=== PATIENT | female | born 1950 | race Caucasian/White ===

== ENCOUNTER 2019-03-01 16:55 | Inpatient (IN) | payer MEDICARE, MEDICAID, OTHER ==
--- NOTE | 2019-03-01 18:20 | NUR ---
ELIGIO VILLAVICENCIO a 69 year old F admitted via wheel chair from the ADMITTING as a voluntary BY [facility] admission. Arrived on unit at 1820. ALLERGIES: DEMEROL. Vital signs are: 98.2-88-17 120/82. 99% ROOM AIR CONSENTS FOR ADMISSION OBTAINED VIA TELEPHONE FROM PT'S [facility] ANIVAL VILLAVICENCIO AND MATHEW VILLAVICENCIO. WITNESSED BY 2 RNS: Authorization For The Release of Medical Information, Consent to Voluntary Admission and Hospitalization, Consent and Release Forms/Receipt of Rights, Acknowledgement of Advance Directive Information, Behavioral Health Consent Form, and Informed Consent of Medications. Admitted under the services of Dr. LISSETTE BOBO,[facility]. A search was conducted and hazardous articles were removed. Client was oriented to the unit. GUADALUPE BRUNO
[2019-03-01 18:30] VITALS: BP 120/82
[2019-03-01] MEDS ORDERED: TYLENOL325 M1 PO (18:35)
[2019-03-01] MEDS ORDERED: ANBESOL9 G1 PO (18:36)
[2019-03-01] MEDS ORDERED: DULCOLAX10 M1 R (18:37)
[2019-03-01] MEDS ORDERED: CHOLESTYRAMINE P4 GM PO (18:38)
[2019-03-01] MEDS ORDERED: VITAMIN B121000 MC1 PO (18:39)
[2019-03-01] MEDS ORDERED: FLEET MINERAL133 ML R (18:40)
[2019-03-01] MEDS ORDERED: FEROSUL325 MG PO (18:40)
[2019-03-01] MEDS ORDERED: PHARMASSURE FO0.4 MG PO (18:40)
[2019-03-01] MEDS ORDERED: KEPPRA500 MG PO (18:41)
[2019-03-01] MEDS ORDERED: MILK OF MA400 MG/51 PO (18:42)
[2019-03-01] MEDS ORDERED: LISINOPRIL5 MG PO (18:42)
[2019-03-01] MEDS ORDERED: MYLANTA MAXIMU355 M1 PO (18:43)
[2019-03-01] MEDS ORDERED: OMEPRAZOLE20 M2 PO (18:43)
[2019-03-01] MEDS ORDERED: ONE-DAILY MULT1 EACH PO (18:44)
[2019-03-01] MEDS ORDERED: Mysoline50 MG PO (18:44)
[2019-03-01] MEDS ORDERED: REMERON15 M2 PO (18:45)
[2019-03-01] MEDS ORDERED: RIVASTIGMINE1 EAC1 TD (18:45)
[2019-03-01] MEDS ORDERED: RISPERDAL0.5 MG PO (18:45)
[2019-03-01] MEDS ORDERED: VITAMIN D35000 UNIT PO (18:46)
[2019-03-01] MEDS ORDERED: ZOCOR40 MG PO (18:46)
--- NOTE | 2019-03-01 19:41 | NUR ---
NOTIFIED OF CONSULT FOR MEDICAL MANAGEMENT. STATES TO PLACE CONSULT UNDER .
--- NOTE | 2019-03-01 19:44 | NUR ---
PT WAS INITIALLY CALM AT THE TIME OF ADMISSION TO THE UNIT. AFTER A FEW MINUTES PT BEGUN TO REACH OUT FOR UNSEEN OBJECTS, TALKING NONSENSICALLY UNDER HER BREATH, REPEATING PHRASES SUCH "THE BABIES, EVERYWHERE, THE BABIES, YOU BITCH" ETC. PT DOES NOT ANSWER QUESTIONS APPROPRIATELY. PT ATTEMPTING TO AMBULATE UNASSISTED WITH UNSTEADY GAIT. PT BECOMES AGITATED AND PHYSICALLY AGGRESSIVE UPON ATTEMPTS TO REDIRECT OR ASSIST PT WITH AMBULATION. PT RANDOMLY STRIKING OUT AND LUNGING AT STAFF, PT YELLING "SHE'S NOT YOUR FATHER!". PT WAS ABLE TO BE CALMED DOWN BY RN WITH VERBAL DEESCALATION TECHNIQUES. SHORTLY THEREAFTER PT'S SON/KRISTEN MATHEW ON UNIT FOR VISITATION. PT CALMLY VISITED WITH SON FOR A FEW MOMENTS AND THEN BEHAVIORS BEGAN TO ESCALATE AGAIN. STAFF ATTEMPTED SEVERAL NONPHARMALOGICAL MEASURES, FOOD AND FLUIDS OFFERED, WARM BLANKET AND PILLOW GIVEN, ATTEMPTED TO TOLIET PT, ATTEMPTED TO AMBULATE PT, BEHAVIORS CONTINUE TO ESCALATE. PT'S SON REMAINS ON UNIT AND IS UNABLE TO CALM PT AT THIS TIME WELL. PT APPEARS TO BE EXPERIENCING AUDITORY AND VISUAL HALLUCINATIONS, PT SEEN REACHING OUT FOR UNSEEN OBJECTS, SWATTING IN THE AIR, YELLING AND CRYING OUT TO UNSEEN OTHERS. ATTEMPTED TO ADMINISTER PRN ATIVAN 1MG PO AT 1902 CRUSHED IN APPLESAUCE PER SON'S SUGGESTION. PT SPIT OUT. AFTER APPROXIMATELY 35 MINUTES OF BEHAVIORS PT'S PHYSICALLY AGGRESSIVE BEHAVIORS LESSENED, HOWEVER PT REMAINS VISIBLY ANXIOUS AND CRYING. PT TOOK PO ATIVAN 1MG PO WHOLE AT 1920. WILL MONITOR FOR EFFECTIVENESS. SUPPORT PROVIDED TO SON. SON LEFT UNIT APPROX 193. PT AMBULATING HALLWAY WITH MENTAL HEALTH WORKER AT THIS TIME.
--- NOTE | 2019-03-01 19:44 | NUR ---
ON UNIT TO SEE PATIENT AT THIS TIME, UPDATE PROVIDED. NO NEW ORDERS AT THIS TIME.
[2019-03-01 20:00] VITALS: BP 120/82
[2019-03-01 20:25] VITALS: BP 124/66
[2019-03-01 20:32] LABS: BASO % 0.4 % (0.0-1.0); EOS # 0.1 10*3/uL (0.0-0.4); EOS % 0.9 % (1.0-4.0); HEMATOCRIT 39.7 % (37.0-47.0); HEMOGLOBIN 12.9 g/dl (12.0-16.0); LYMPH # 1.2 10*3/uL (1.3-4.4); LYMPH % 15.9 % (27.0-41.0); MEAN CELL VOLUME 86.1 fl (81.0-99.0); MEAN CORPUSCULAR HGB CONC 32.5 g/dl (33.0-37.0); MEAN PLATELET VOLUME 9.7 fl (9.6-12.3); MONO # 0.5 10*3/uL (0.1-1.0); MONO % 6.8 % (3.0-9.0); NEUT # 5.6 10*3/uL (2.3-7.9); NEUT % 75.9 % (47.0-73.0); PLATELET COUNT AUTOMATED 207 10*3/uL (130-400); RED BLOOD COUNT 4.61 10*6/uL (4.10-5.10); RED CELL DISTRI WIDTH 12.4 % (0-14.5); WHITE BLOOD COUNT 7.4 10*3/uL (4.8-10.8)
[2019-03-01 21:04] LABS: ALBUMIN 3.7 gm/dl (3.1-4.5); ALKALINE PHOSPHATASE 92 U/L (45-117); BUN 13 mg/dl (7-24); CHLORIDE 108 mmol/L (98-107); CREATININE 0.82 mg/dL (0.55-1.02); POTASSIUM 3.5 mmol/L (3.5-5.1); SGOT/AST 9 IU/L (3-35); SGPT/ALT 24 U/L (12-78); SODIUM 140 mmol/L (136-145); TOTAL PROTEIN 7.1 gm/dL (6.4-8.2)
--- NOTE | 2019-03-01 21:20 | NUR ---
PT OFF FLOOR FOR CT AT THIS TIME, ESCORTED BY RN, MILIEU, AND SECURITY.
[2019-03-01 21:25] LABS: VITAMIN D, 25-HYDROXY 26.5 ng/mL (30-100)
--- NOTE | 2019-03-01 21:30 | NUR ---
PT BACK ON UNIT FROM CT AT THIS TIME.
--- NOTE | 2019-03-01 21:50 | NUR ---
PT SITTING AT TABLE IN DINING ROOM WITH PEERS. PT OBSERVED BY STAFF WHILE SITTING IN CHAIR TO LEAN FORWARD, HITTING HEAD OFF OF TABLE AT 2024 . PT ALERT, NO LOSS OF CONSCIOUSNESS, PUPILS EQUAL AND REACTIVE. VITALS TAKEN AND RECORDED, WNL. 2 SMALL AREAS NOTED TO FOREHEAD. AN ABRASION LOCATED ON RIGHT SIDE OF FORHEAD WITH MEASUREMENTS OF LENGTH- 0.1CM, WIDTH - 1.5CM, DEPTH <0.01 CM, AND A PINPOINT AREA WITH LOCATED IN CENTER OF FOREHEAD LENGTH- 0.1CM, WIDTH 0.2CM, DEPTH <O.O1CM. MINIMAL BLEEDING NOTED FROM PIN POINT AREA. PHOTOS TAKEN OF BOTH AREAS AND DRESSING APPLIED TO PINPOINT AREA. DR. KAMINSKI UPDATED. MANAGER CARDIOLOGY AND DIRECTOR NOTIFIED. YIN VILLAVICENCIO CALLED AT 2056 AND LEFT MESSAGE. FIRST ALTERNATE YIN VILLAVICENCIO UPDATED AT 2121. PT SITTING QUIETLY ACROSS FROM NURSES STATION AT THIS TIME WITH STAFF. NO SIGNS OR SYMPTOMS OF DISTRESS NOTED.
--- NOTE | 2019-03-01 22:24 | NUR ---
RESDIENT NUMBER CALLED [phone], INFORMED THAT CT RESULTS ARE IN, READY FOR REVIEW.
--- NOTE | 2019-03-02 02:48 | NUR ---
P: CONFUSED/ DELUSIONS PT MAKING STATEMENTS ABOUT A TOASTER AND HER DAD. I: MOOD AND BEHAVIOR ASSESSED, MEDICATION ADMINISTERED PER DR SUERO. ASSISSTANCE WITH ADL CARE PROVIDED. R: PT IS CONFUSED, BUT WAS ABLE TO TAKE HER MEDICATION AND PT REMAINS CALM DURING HS. P: CONTINUE TO MONITOR FOR HALLCINATIONS/DELUSIONSMOOD AND MEDICATION COMPLAINCE. PROVIDE REORIENTATION, ONE ON ONE ENCOURAGE TO TAKE MEDICATIONS. WILL CONT. TO MONOTOR Q 15 MIN. CHECKS PER POLICY FOR SAFETY.
--- NOTE | 2019-03-02 04:24 | NUR ---
DR. LITTLEJOHN UPDATED ON PATIENT WOUND AREAS ON FOREHEAD AND SKIN TEAR ON LEFT HAND AND NEEDING ORDERS. STATED HE WILL PUT ORDERS IN. NO NEW ORDERS RECEIVED.
--- NOTE | 2019-03-02 04:43 | NUR ---
PRN ATIVAN GIVEN AT 1920 MINIMALLY EFFECTIVE THIS SHIFT, PT LESS COMBATIVE WITH HANDS ON CARE BUT REMAINS RESTLESS WITH AGITATION. THERAPEUTIC INTERVENTIONS REMAIN UNSUCCESSFUL IN CALMING PATIENT. UNABLE TO BE REDIRECTED. PT UP NEAR NURSES STATION DUE TO UNSTEADY GAIT AND LACK OF SAFETY AWARENESS. FALL PRECAUTIONS CONTINUED AND MAINTAINED. PT INCONINENT OF BOWEL AND BLADDER, ASSIST X2, ALL NEEDS ANTICIPATED BY STAFF. PT UNABLE TO PARTICIPATE IN ADMISSION ASSESSMENT DUE TO COGNTION, ALL INFORMATION FOR ASSESSMENT RECIEVED FROM FACILITY. SKIN ASSESSMENT COMPLETED, SEE WOUND DOCUMENTATION. PT SLEPT APPROX 2 HOURS THIS SHIFT, UNINTERRUPTED. NO SIGNS OR SYMPTOMS OF DISTRESS NOTED.
[2019-03-02 06:55] LABS: CHOLESTEROL 150 mg/dL (<200); HDL CHOLESTEROL 70 mg/dl (40-60); LDL CHOLESTEROL 67 mg/dL (9-159); TRIGLYCERIDES 66 mg/dl (<150); VLDL CHOLESTEROL 13 mg/dL (6-40)
[2019-03-02 07:41] VITALS: BP 125/69
--- NOTE | 2019-03-02 11:45 | NUR ---
AM GROUP/DARIO! PT UNABLE TO ATTEND AT THIS TIME DUE TO LEVELS OF CONFUSION AND RESTING IN QUIET ROOM. THIS STAFF WILL ATTEMPT ACTIVITY ASSESSMENT ON PT THIS AFTERNOON. PT WILL BE ENCOURAGED TO ATTEND AN DPARTICIPATE IN FUTURE GROUP SESSIONS TO BEST OF PT ABILITY.
--- NOTE | 2019-03-02 13:51 | NUR ---
Spoke with pt's son Arnoldo Mijares who provided pt information. Arnoldo stated that there has been a significant change to pt within the last two weeks. Arnoldo continued that pt's head drooping is new and that pt has stopped acknowledging family when they visit. Arnoldo stated that he has noticed what he believes is pt hallucinating - fearful as if being chased. Arnoldo also stated that pt has begun stating repeatedly "that's my father." Arnoldo believes this is in reference to pt's sisterin-law Sonja who had a close relationship to pt's father, which was upsetting to pt. Arnoldo also stated that it was recently discovered that pt has cataract and he is wondering if that might be adding to pt's change in status. Pt has an appointment on 03/07/19 to assess for cataract surgery.
--- NOTE | 2019-03-02 15:55 | NUR ---
PM GROUP/ART/GAME PT CONTINUES TO REST IN QUIET ROOM. MIDWAY THROUGH GROUP THIS STAFF HEARS PT YELLING OUT AND UPSET. PT SITTING IN FRONT OF NURSES STATION WITH HEAD DOWN AT THIS TIME. PT ACTIVITY ASSESSMENT WILL BE COMPLETED TOMORROW AND PT WILL BE ENCOURAGED TO ATTEND FUTURE GROUP SESSIONS AN DPARTICIPATE TO BEST OF PT ABILITY.
--- NOTE | 2019-03-02 16:08 | NUR ---
PT SON/POA IDANIA CALLED IN FOR UPDATE, UPDATE PROVIDED.
[2019-03-02 20:00] VITALS: BP 155/79
--- NOTE | 2019-03-03 00:47 | NUR ---
P: AGITATED/ AGGRESSIVE, SPITTING ON THE FOOR, YELLING OUT, STRICKING OUT, USING VULGAR LANUAGE I: MUSIC WAS PLAYED, LOW STIULATION, WARM BLANKET, 1:1 EMOTIONAL SUPPORT, OFFERED FOOD AND DRINK.MEDICATION ADMINISTERED PER ORDER, PRN WAS GIVEN AT 2238 GEODON 10MG IM. R: EFFECTIVE, PT IS CALM, MOOD STABLE AND PT IS RESTING IN HER BED. P: CONTINUE TO MONITOR AGGRESSION AND OUTBURST,CONTINUE TO PROVIDE 1:1 AND REDIRECTION, ENCOURAGE MEDICATION ORDERED. Q 15 MIN. CHECKS SAFETY CHECKS.
--- NOTE | 2019-03-03 06:51 | NUR ---
PT WAS IN HER ROOM DURING NIGHT WITH 5 HOURS OF NO AWAKINGS. PT REFUSED ALL HER MEDICATION THIS AM.
[2019-03-03 08:01] VITALS: BP 121/78
--- NOTE | 2019-03-03 11:39 | NUR ---
PT LISTENING TO MUSIC AT THIS TIME. PT ATTEMPTING TO DANCE.
--- NOTE | 2019-03-03 11:47 | NUR ---
PT YELLING OUT "THIS IS MY FATHER. YOU BITCH. GET OUT OF HERE" AND BECOMING TEARFUL. UNABLE TO REDIRECT PT AT THIS TIME.
--- NOTE | 2019-03-03 12:07 | NUR ---
AM GROUP/EXERCISE/STORY/ART PT UNABLE TO ATTEND AT THIS TIME DUE TO YELLING OUT AND LEVELS OF COGNITION. PT WILL BE ENCOURAGED TO ATTEND AN DPARTICIPATE TO BEST ORF ABILITY WHEN LESS OF A DISTRACTION TO PEERS.
--- NOTE | 2019-03-03 13:25 | NUR ---
PT CONTINUES TO YELL OUT, VERY TEARFUL, HITTING CHAIR OVER AND OVER. ATTEMPTED TO CONSOLE PT AND PROVIDE 1:1 FOR THERAPEUTIC COMMUNICATION AND PT ATTEMPTED TO SWING AT THIS NURSE. PRN SILVIA GIVEN TO CALM PT. WILL MONITOR EFFECTIVENESS OF MEDICATION.
--- NOTE | 2019-03-03 14:00 | NUR ---
PRN EFFECTIVE. PT RESTING QUIETLY IN CHAIR WITH FEET ELEVATED. WILL CONTINUE TO MONITOR BEHAVIORS WITH Q15 MINUTE SAFETY CHECKS.
--- NOTE | 2019-03-03 18:26 | NUR ---
YIN CARMONA ON UNIT TO VISIT PT, UPDATE PROVIDED. MATHEW VOICES UPSET THAT DR MCLAUGHLIN OR THE NURSE PRACTIONER HAS NOT REACHED OUT TO HIM CONCERNING HIS MOTHER'S CARE. ADVISED MATHEW OF THE CURRENT TREATMENT PLAN. MATHEW VISIBLY UPSET STATING THAT HE HAS HAD A COMMUNICATION PROBLEM WITH [facility] AT THE [facility] AND IT IS NOT ACCEPTABLE PRACTICE AND THE FACT THAT HIS MOTHER HAS NOT BEEN SEEN BY THE PSYCHIATRIST AND ONLY BEEN SEEN BY THE NURSE PRACTIONER IN 48 HOURS IS UNACCEPTABLE. HE STATED THAT HIS MOTHER WAS NOT PREVIOUSLY LEANING FORWARD UNTIL A WEEK AGO AND HAS HAD INCREASED BEHAVIORS IN THAT TIME AND WE NEED TO FIGURE OUT WHY SHE IS DOING THIS. HE STATES HE DOES NOT THINK IT IS THE DEMENTIA PROGRESSING AND DOES NOT WANT US "MEDICATING JUST TO STOP HER BEHAVIORS WE NEED TO FIGURE OUT THE PROBLEM." ADVSIED THAT PT HAS BEEN ORDERED LAB WORK, HAD A HEAD CT, AND IS ORDERED A UA TO CHECK FOR INFECTION. THIS NURSE AND THE SECOND NURSE PROVIDED EDUCATION ON THE PROGRESSION OF DEMENTIA AND INCREASED BEAHVIORS, MATHEW STATED "YOU WILL NOT CHANGE MY MIND I DO NOT THINK WE ARE AT THAT POINT YET." PER MATHEW HE IS REQUESTING TO SPEAK WITH THE NURSE PRACTIONER ON [facility] AND DR MCLAUGHLIN TOMORROW MATHEW STATED "I WILL TAKE MY MOTHER OUT OF HERE TOMORROW AND WILL FIRE DR MCLAUGHLIN HERE AND AT THE FACILITY UNLESS I SPEAK TO HIM TOMORROW." CALL OUT TO EMIR CARMONA CNP TO RETURN CALL. PAWAN, NURSING WELDER GUN UPDATED.
[2019-03-03 19:58] VITALS: BP 140/80
--- NOTE | 2019-03-03 20:54 | NUR ---
PT WAS MEDICATION COMPLIANT WITH THIS NURSE. TAKING PILLS WHOLE WITH 240 CC OF JUICE. LAUGHING AND TALKING WITH THIS NURSE WITH INTERMITTENT WEEPING AND CRYING WHICH HAD BEEN REDIRECTABLE WITH 1:1. PT THEN BEGAN TO YELL OUT "YOU FUCKING BITCH, GIVE ME MY CHILDREN" AT VARIOUS STAFF. UNABLE TO CALM WITH 1:1 PT ANXIETY INCREASED, BECAME WEEPY, SWINGING OUT AT STAFF IF APPROACHED, MUSIC AND LOW STIM DID NOT DECREASE ANXIETY,. PT GIVEN ATIVAN IM AT THIS TIME.
[2019-03-03 22:39] LABS: BILIRUBIN 1+ (NEGATIVE); BLOOD 3+ (NEGATIVE); CLARITY CLEAR (CLEAR); COLOR YELLOW (YELLOW); GLUCOSE NEGATIVE (NEGATIVE); KETONE TRACE (NEGATIVE); LEUKO ESTERASE TRACE (NEGATIVE); NITRITE NEGATIVE (NEGATIVE); SPECIFIC GRAVITY >= 1.030 (1.005-1.030); UROBILINOGEN 0.2 E.U./dl (0.2-1.0)
[2019-03-03 22:50] LABS: BACTERIA 2+; COARSE GRANULAR CAST 0-2; WBC 21-30 wbc/hpf (0-5)
--- NOTE | 2019-03-03 23:36 | NUR ---
P: INCREASED ANXIETY, DELUSION OF PEOPLE TAKING HER CHILDREN, AGRESSIVE BEHAVIORS, NONCOMPLIANT WITH MEDICATIONS I: REDIRECT, 1:1, LOW STIMULATION, REORIENTATION, MEDICATION ADMINISTRATION, HANDS ON CARE TO ENSURE ALL NEEDS WERE MET, ATIVAN GIVEN R: PT DID TAKE MEDICATIONS THIS EVENING WITH 1:1 BY THIS NURSE, ATIVAN EFFECTIVE, PT CALMED AND WENT TO BED THIS EVENING P: CONTINIUE TO MONITOR PT FOR EFFECTIVENESS OF MEDICATIONS, REOREINTATION ABLE, ENCOURAGE MEDICATION COMPLIANCE. PROVIDE ROUTINE PATTERNS FOR PT TO ADJUST TO. MONITOR PER [facility] 15 MIN CHECKS.
--- NOTE | 2019-03-03 23:53 | NUR ---
LUIS CARMONA UPDATED ON PT MEDICAITON COMPLIANCE, AND PRN ATIVAN PER REQUEST.
--- NOTE | 2019-03-04 05:27 | NUR ---
24 HR chart check completed. PT SLEPT 8 HOURS
--- NOTE | 2019-03-04 07:24 | NUR ---
ELIGIO VILLAVICENCIO Philip [id number] [phone] Please refer to the physician's history and physical for past medical history, comorbid conditions, and allergies. Diagnosis: INTERMITTENT EXPLOSIVE DISORDER Bernabe Score: 17,AT RISK WOUND DESCRIPTIONS: Assessed patient's right and middle forehead. No open areas noted at time of assessment. No drainage or odor at time of assessment. Skin to forehead is pink and wnl. Scab measuring 0.4cm x 0.4cm x <0.1cm to patient's left hand noted. No drainage or erythema noted at time of assessment. Patient is unsure how she got this area. Surface the patient is resting on: Proform SKIN PREVENTION RECOMMENDATION: 1. Pressure redistribution support surface as appropriate 2. Elevate heels 3. Remove boots/TEDS every shift and reapply 4. Head of bed 30 degrees as tolerated 5. Assess nutrition and hydration 6. Manage moisture 7. Avoid the use of containment devices while in bed 8. Use absorptive products on surfaces limit layers of linens on bed 9. Turn and reposition every 1-2 hours in bed and every 1 hour in chair as tolerated 10. Weight shifts every 15 minutes while up in chair 11. Offloading with pillows or device to keep heels elevated off bed 12. Monitor skin at least every shift 13. Inspect under medical devices twice a day WOUND TREATMENT RECOMMENDATIONS: Heel raiser pro boots while laying for prevention. Wheel chair cushion when sitting in chair.
--- NOTE | 2019-03-04 08:00 | NUR ---
Treatment Plan meeting was held with IMER Alanis, RN, AT, FOOD SERVICE CLERK-S and Line Construction Supervisor in attendance. Plan for discharge Next week. Pt. will return to [facility] at discharge.
[2019-03-04 08:34] VITALS: BP 126/68
--- NOTE | 2019-03-04 09:00 | NUR ---
Received Call From Kait Webber at [facility]. Pt. is Personnel Research Psychologist Care at facility and will return at discharge. Pt. was not receiving PT or OT at facility prior to coming to [facility].
--- NOTE | 2019-03-04 10:09 | NUR ---
Shari BLANCAS notified of wound care recommendations.
--- NOTE | 2019-03-04 11:46 | NUR ---
NO AM GROUP
--- NOTE | 2019-03-04 13:22 | NUR ---
Clinical Updates faxed to [facility] Attn: Kait Coleman [phone].
--- NOTE | 2019-03-04 15:55 | NUR ---
PM GROUP PT WAS PRESENT FOR AFTERNOON GROUP THERAPY SLEEPING IN A LARRY CHAIR. PT DID NOT WAKE DURING GROUP.
[2019-03-04 19:41] VITALS: BP 113/73
--- NOTE | 2019-03-04 21:01 | NUR ---
EVENING GROUP/MLK DISCUSSION PT IN ATTENDANCE BUT DUE TO LEVELS OF COGNITION PT UNABLE TO PARTICIPATE. PT RELAXING IN RECLINER AT THE FRONT OF THE ROOM. PT WILL CONTINEU TO ATTEND FUTURE GROUP SESISONS.
--- NOTE | 2019-03-04 21:30 | NUR ---
WHILE TALKING WITH PT SON IN REFERENCE TO HIS MOTHERS CARE HE STATED "MY MOTHER WILL NOT BE HERE TOMORROW AT 7PM, BECAUSE EITHER SHE IS GETTING TRANSFERED TO [facility] OR THERE WILL BE A CRAZY MAN ON THE NEWS FOR BEING AT THE HOSPITAL TO GET HIS MOTHER" MATHEW CHUCKLED AND CHANGED SUBJECT TO WANTING TO JUST GET HER THE BEST.
--- NOTE | 2019-03-04 21:30 | NUR ---
PT MEDICAITON COMPLIANT THIS EVENING, QUIET, WITH HEAD TILTED FORWARD, PT NONCOMMUNICATIVE DURING INTERACTION, GARBLED MUMBLED SPEECH NOTED. PT CONTINUES TO HAVE HEAD DROOPED FORWARD, REPOSITOINING INEFFECTIVE. SHE DID CONSUME SNACK AND BEVERAGES THIS EVENING. SON/POIsak CARMONA CALLED IN FOR UPDATE ON PT STATUS. VOICED CONCERNS OF RAPID ONSET OF DECLINE STATING HE WANTS HER TO BE EVALED TO BE SENT TO [facility]ULT, THIS NURSE INFORMED HIM THAT STAFF IS AWARE AND THAT MEDICAL AND MENTAL HEALTH TEAMS ARE AWARE OF HIS WISHES PER REPORT. UPDATED ON CURRENT INTAKES AND MOODS OF PT.
--- NOTE | 2019-03-05 04:33 | NUR ---
Upon discharge recommend patient to follow up for wound care in outpatient setting continue current wound care orders at discharging facility
--- NOTE | 2019-03-05 06:40 | NUR ---
PT SLEPT 7+ HOURS, UP TO LARRY CHAIR THIS AM . PT VERBALIZING WORDS CLEARLY WHEN ASKED HER NAME. UNABLE TO REFERENCE BIRTHDAY, CURRENT DATE, LOCATION. PT KICKING LEGS IF EXCERCISING WHILE UP IN CHAIR, CONTINUE TO MONITOR AT THIS TIME
[2019-03-05 07:43] VITALS: BP 123/74
--- NOTE | 2019-03-05 08:00 | NUR ---
Treatment Plan meeting was held with Dr. Jacob, IMER Alanis, RN, AT, VALET RUNNER-S and Edge Gluer in attendance. Plan for discharge is unclear at this time. Pt. Son has requested Transfer. Dr. Jacob has asked for Medical Team to Facilitate Transfer.
--- NOTE | 2019-03-05 08:17 | NUR ---
PHYSICAL THERAPY Attempted to see pt for evaluation per staff agitated throwing breakfast on floor, not appropriate to see at this time. Per nsg pt tends to keep head on chest which is new, she is able to lift head but won't maintain head in upright position. Nsg states MD's do not feel it has anything to do with shunt and are treating pt for UTI. Will follow monitor status and appropriateness for eval. Julia Wells PT
--- NOTE | 2019-03-05 08:18 | NUR ---
OCCUPATIONAL THERAPY Attempted to see pt for initial occupational therapy evaluation. Per staff report: patient agitated and throwing breakfast on floor, not appropriate to see at this time. Per nsg, patient tends to keep head on chest which is new, however is able to lift head but won't maintain head in upright position. Nsg states MD's do not feel it has anything to do with shunt and are treating pt for UTI. Will follow monitor status and appropriateness for eval. Smiley Gomes OTR/L
--- NOTE | 2019-03-05 08:43 | NUR ---
Shari BLANCAS notified of wound care recommendations.
--- NOTE | 2019-03-05 09:30 | NUR ---
TEZ STEPHEN CNP ON UNIT TO ASSESS PATIENT.
[2019-03-05] MEDS ORDERED: NAMENDA-5 PO (10:13)
[2019-03-05] MEDS ORDERED: EXELON13.3 MG/21 T (10:13)
[2019-03-05] MEDS ORDERED: RISPERIDONE M-0.5 MG BC (10:13)
--- NOTE | 2019-03-05 11:48 | NUR ---
AM GROUP/LILLI HERMAN PT IS UNABLE TO ATTEND GROUP THERAPY AT THIS TIME DUE TO COGNITIVE IMPAIRMENT AND A DISRUPTION TO THE GROUP MILIEU
--- NOTE | 2019-03-05 14:27 | NUR ---
Spoke with Kait Coleman at [facility]. Advised of Pt. transfer today to [facility].
--- NOTE | 2019-03-05 15:42 | NUR ---
PM GROUP PT IS UNABLE TO ATTEND GROUP THERAPY DUE TO COGNITIVE IMPAIRMENT.
--- NOTE | 2019-03-05 16:30 | NUR ---
P: EXTREMELY RESTLESS, TALKING TO UNSEEN OTHERS, CURSING, YELLING OUT, CALLING FOR BABIES, PULLING AT HAIR AND SMACKING FACE. I: ONE ON ONE, REDIRECTION, MUSIC THERAPY, OFFERED BABY DOLL FOR SECURITY ASSISTED TO QUIET ROOM FOR CHANGE OF ENVIRONMENT WITH LOW STIMULI. R: INEFFECTIVE. PATIENT IS ALERT TO SELF WITH CONFUSION. LONG/SHORT TERM MEMORY DEFICITS. MOOD IS IRRITABLE, RESTLESS, CURSING, HOPELESS/HELPLESS AND ANXIOUS. RESPONDING TO INTERNAL STIMULI. 2 PERSON ASSIST WITH ACTIVITIES OF DAILY LIVING, INCONTINENT OF BOWEL AND BLADDER. SET UP FOR MEALS, INTAKES ARE VARIES WITH ENCOURAGEMENT OF FLUIDS. REFUSED MEDICATION WITH MUCH ENCOURAGEMENT. Q 15 MINUTE SAFETY CHECKS. P: CONTINUE TO MONITOR FOR AGGRESSION AND HALLUCINATIONS. PROVIDE ONE ON ONE AND REDIRECTION/ORIENTATION NEEDED.
--- NOTE | 2019-03-05 16:30 | NUR ---
PRN ATIVAN 1MG IM TO LEFT DELTOID.
--- NOTE | 2019-03-05 17:30 | NUR ---
PRN ATIVAN EFFECTIVE. PATIENT IN LARRY CHAIR RECLINE, NO LONGER RESTLESS.
[2019-03-05 20:00] VITALS: BP 119/71
--- NOTE | 2019-03-05 20:31 | NUR ---
PATIENT CALM, VITALS WNL, LEFT UNIT VIA [facility] AT 2024, PAPERWORK AND BELONGINGS SENT WITH PATIENT AND EMT STAFF. SON MATHEW CALLED IN AND UPDATED ON PATIENT LEAVING UNIT FOR TRANSPORT AT THIS TIME.
== END 2019-03-05 20:42 | disposition short-term general hospital (02) | DRG 883 ==
LOC: 3N 16:55
PROVIDERS: ADMIT Psychiatry & Neurology Psychiatry
DX: F63.81 Intermittent explosive disorder (principal); F02.81 Dementia in other diseases classified elsewhere, unspecified severity, with behavioral disturbance; S09.90XA Unspecified injury of head, initial encounter; F32.9 Major depressive disorder, single episode, unspecified; F60.0 Paranoid personality disorder; F22 Delusional disorders; R32 Unspecified urinary incontinence; F44.9 Dissociative and conversion disorder, unspecified; E78.5 Hyperlipidemia, unspecified; F25.9 Schizoaffective disorder, unspecified; F41.9 Anxiety disorder, unspecified; E53.8 Deficiency of other specified B group vitamins; D50.9 Iron deficiency anemia, unspecified; I10 Essential (primary) hypertension; K59.00 Constipation, unspecified; K21.9 Gastro-esophageal reflux disease without esophagitis; G30.9 Alzheimer's disease, unspecified; X58.XXXA Exposure to other specified factors, initial encounter; Y93.89 Activity, other specified; Y92.89 Other specified places as the place of occurrence of the external cause; Y99.8 Other external cause status; Z98.2 Presence of cerebrospinal fluid drainage device; Z98.49 Cataract extraction status, unspecified eye; Z88.8 Allergy status to other drugs, medicaments and biological substances; Z79.899 Other long term (current) drug therapy